=== PATIENT | male | born 1995 | race Caucasian/White ===

== ENCOUNTER 2023-06-23 16:28 | Outpatient (CLI) | payer BC, SELFPAY ==
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
== END 2023-06-23 16:29 | disposition home or self-care (01) ==
LOC: CCC 06-30 16:30
PROVIDERS: Visit Provider Nurse Practitioner Family
DX: B20 Human immunodeficiency virus [HIV] disease (principal); Z79.899 Other long term (current) drug therapy
CPT/HCPCS: 99204

== ENCOUNTER 2023-06-25 16:32 | Outpatient (CLI) | payer BC, SELFPAY ==
[2023-06-25 14:52] LABS: Abs Immature Grans 0.01 10^3/uL (0.0-0.06); Absolute Basophil Count 0.02 10^3/uL (0.0-0.2); Absolute Eosinophil Count 0.04 10^3/uL (0.0-0.7); Absolute Lymphocyte Count 1.51 10^3/uL (1.2-3.4); Absolute Neutrophil Count 1.94 10^3/uL (1.2-6.7); Basophils % 0.5; HCT 45.1 % (40.0-50.0); HGB 15.4 g/dL (13.5-17.5); Immature Grans % 0.3; Lymphocytes % 39.5; MCH 32.7 pg (27.0-33.0); MCHC 34.1 % (32.0-36.0); MCV 96 fL (80-95); MPV 9.8 fL (8.0-11.0); Monocytes % 7.9; Neutrophils % 50.8; Platelet Count 205 10^3/uL (130-400); RBC 4.71 10^6/uL (4.36-5.78); RDW 11.9 % (11.8-14.1); RDW-SD 41.7 fL; WBC 3.82 10^3/uL (4.4-10.8)
[2023-06-25 15:21] LABS: Hemoglobin A1C 5.1 % (<5.7)
[2023-06-25 16:01] LABS: ALT 20 U/L (16-63); AST 10 U/L (15-37); Albumin 4.5 g/dL (3.4-5.0); Alkaline Phosphatase 58 U/L (46-116); Anion Gap 10.4 mmol/L (3-11); BUN 14 mg/dL (7-18); Bilirubin, Total 0.7 mg/dL (0.2-1.0); CO2 26.6 mmol/L (21.0-32.0); CREATININE 1.2 mg/dL (0.70-1.30); Calcium 9.6 mg/dL (8.5-10.1); Calculated LDL 121 mg/dL (<100); Chloride 106 mmol/L (98-107); Cholesterol 187 mg/dL (<200); Estimated GFR 83.95 (mL/min/1.73m2); Glucose 93 mg/dL (74-106); HDL Cholesterol 51 mg/dL (40-60); Potassium 3.9 mmol/L (3.5-5.1); Sodium 143 mmol/L (136-145); Total Protein 7.8 g/dL (6.4-8.2); Triglyceride 79 mg/dL (<150)
[2023-06-28 11:26] LABS: 4/8 Ratio 1.02 (>=0.90); Absolute CD3 1179 Cells/uL (840-2669); Absolute CD8 586 Cells/uL (154-1097); CD3 80 % (56-84); CD4 41 % (31-64); CD8 40 % (9-39)
[2023-06-28 13:41] LABS: HIV 1 RNA Qualitative Undetected copies/mL (Undetected)
== END 2023-06-25 16:33 | disposition home or self-care (01) ==
LOC: LBO 16:33
PROVIDERS: Visit Provider Nurse Practitioner Family
DX: B20 Human immunodeficiency virus [HIV] disease (principal); Z79.899 Other long term (current) drug therapy
CPT/HCPCS: 36415; 80053; 80061; 87536; 83036; 85025; 86359; 86360